=== PATIENT | female | born 1990 | race Caucasian/White ===

== ENCOUNTER 2020-01-28 23:02 | Inpatient (IN) | payer BC ==
[2020-01-28] MEDS ORDERED: Ondansetron 4 MG/2 ML SDV IVPUSH PRN (23:31)
[2020-01-28] MEDS ORDERED: Sodium Chloride 0.9% 10 ML Syringe FLUSH PRN (23:31)
[2020-01-28] MEDS ORDERED: Acetaminophen 325 MG Tab PO PRN (23:31)
[2020-01-28] MEDS ORDERED: Lidocaine 1% 50 ML MDV INJECT ONE (23:31)
[2020-01-28] MEDS ORDERED: Calcium Carbonate 500 MG Tab.Chew PO PRN (23:31)
[2020-01-28] MEDS ORDERED: Oxytocin/Lactated Ringers 10 UNIT/1,000 ML BAG IV SCH ×2 (23:45)
[2020-01-29] MEDS: Nalbuphine 10 MG/1 ML Vial IVPUSH PRN ×2 (03:33→05:48)
--- NOTE | 2020-01-29 05:44 | PCM.LDHP ---
L&D History of Present Illness - General Date of Service: 01/29/20 Admit Problem/Dx: Patient Status Order with Admit Dx/Problem 01/28/20 23:17 Patient Status [ADT] Routine 01/28/20 23:32 Patient Status [ADT] Routine Admission Diagnosis/Problem Admission Diagnosis/Problem Active labor Source of Information: Patient History Limitations: Reports: No Limitations - History of Present Illness Introduction:: Janet Canela is a 29-year-old at 40 weeks 3 days (RACHANA 01/26/2020) by her LMP consistent with 8-week ultrasound who presents with spontaneous rupture membranes. She reports that around 10:20 PM on 01/28/2020 she had a large gush of fluid with continuous leaking of clear fluid. She denies any bleeding with this. She reports she had been having contractions intermittently prior to her water breaking that were irregular every 8 to 20 minutes. She reports that the contractions continued and were getting closer and closer together after her water had broken. She reports good movement. 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 Timing/Duration: Reports: sudden onset (With large gush of fluid around 10:20 PM on 01/28/2020), intermittent (Contractions every 8 to 20 minutes) Quality: Reports: Pressure, Throbbing Severity: Moderate Pain Score: 6 Improves with: Reports: None Worsens with: Reports: None Associated Symptoms: Reports: vaginal fluid, large amount. Denies: vaginal bleeding, vaginal discharge Present Illness Comments:: Janet Canela is a 29-year-old G1, P0 at 40 weeks 3 days (RACHANA 01/26/2020) by LMP consistent with 8-week ultrasound. She has had routine care with Dr. Oreilly since 8 weeks gestational age. She received Tdap vaccine on 11/15/2019 and flu vaccine on 12/27/2019. 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 Only other complication of the pregn barbi has been anemia and has been taking iron supplementation for this with mild constipation. She is using Colace for the constipation. Her is complicated by: * Hay's palsy -patient diagnosed with Hay's palsy with right-sided face paralysis with decreased motion of the right canthus of the mouth and delayed closing of the eyelid with blinking and incomplete closure of the eyelid. She was treated with prednisone 20 mg twice daily for 1 week and valacyclovir 1 g 3 times daily for 1 week. * Anemia in patient was diagnosed with low hemoglobin of 11.5 at her 1 hour glucose tolerance test and started on iron supplementation * History of endometriosis and a possible polycystic ovarian syndrome-patient had undergone laparoscopy with ovarian drilling and fulguration of endome triosis lesions. 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: Current labs Blood type: A+ Antibody screen: Negative First trimester hematocrit/hemoglobin: 39.0%/12.9 on 07/21/2019 Platelets: 213 on 07/21/2019 Urine culture: Mixed billy suggestive of contamination Rubella status: Immune Hepatitis B surface antigen: Negative RPR: Negative HIV: Negative Gonorrhea: Negative Chlamydia: Negative Anatomy ultrasound: Normal anatomy, 44th percentile on 09/17/2019, no evidence of placenta previa One hour glucose tolerance test: 106 Second trimester hematocrit/hemoglobin: 35.6%/11.5 on 10/29/2019 Platelets: 207 on 10/29/2019 GBS status: Negative - Related Data Allergies/Adverse Reactions: Allergies Allergy/AdvReac Type Severity Reaction Status Date / Time No Known Allergies Allergy Verified 01/14/20 09:43 Home Medications: Home Meds Ferrous Sulfate [Iron] 325 mg PO DAILY 01/14/20 [History] Vits #93/Iron Fum/FA [ Formula Tablet] 1 each PO DAILY 01/14/20 [History] Past Medical History HEENT History: Reports: Other (See Below) Other HEENT History: Wears glasses Cardiovascular History: Reports: Heart Murmur Other Cardiovascular History: Pt stated heart murmur developed during Gastrointestinal History: Reports: Chronic Constipation, Hemorrhoids, Other (See Below) Other Gastrointestinal History: Anal fissure Genitourinary History: Reports: UTI, Recurrent 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: Endometriosis (Ablation on laparoscopy), , Other (See Below) : 1 Para: 0 Other OB/BYN History: Infertility Neurological History: Reports: Other (See Below) Other Neuro History: Hay's Palsy Psychiatric History: Reports: Anxiety Hematologic History: Reports: Anemia - Past Surgical History HEENT Surgical History: Reports: None Cardiovascular Surgical History: Reports: None GI Surgical History: Reports: None Female Surgical History: Reports: Other (See Below) Other Female Surgeries/Procedures: Laparoscopy with ovarian drilling and ablation of endometriosis lesions Neurological Surgical History: Reports: None Social & Family History - Family History Family Medical History: No Pertinent Family History - Tobacco Use Tobacco Use Status *Q: Never Tobacco User - Tobacco Core Measures Tobacco Use/Smoking Within Last 30 Days: No Smokeless Tobacco Use in Last 30 Days: No - Alcohol Use Alcohol Use History: No - Recreational Drug Use Recreational Drug Use: No - Living Situation & Occupation Living situation: Reports: , with Spouse Occupation: Employed H&P Review of Systems - Review of Systems: Review Of Systems: See Below General: Denies: Fever, Chills, Malaise, Weakness HEENT: Reports: Glasses, Other (decreased motility of right canthus of mouth and decreased motion of right eyelid). Denies: Eye Pain, Headaches, Rhinitis, Post Nasal Drip, Sinus Congestion, Sore Throat, Visual Changes Pulmonary: Denies: Shortness of Breath, Wheezing, Pleuritic Chest Pain, Cough Cardiovascular: Denies: Chest Pain, Palpitations, Dyspnea on Exertion, Orthopnea Gastrointestinal: Reports: Constipation. Denies: Abdominal Pain, Diarrhea, Nausea, Vomiting Genitourinary: Denies: Dysuria, Frequency, Burning, Pain, Urgency Musculoskeletal: Reports: Back Pain (and hip pain of ) Skin: Denies: Rash, Lesions Psychiatric: Denies: Depression, Anxiety Neurological: Denies: Dizziness, Numbness Hematologic/Lymphatic: Reports: Anemia L&D Exam - Exam Exam: See Below - Vital Signs Vital Signs: Last Vital Signs Temp 37.3 C 01/28/20 23:17 Pulse 65 01/28/20 23:17 Resp 18 01/28/20 23:17 BP 110/75 01/28/20 23:17 Pulse Ox 100 01/28/20 23:17 Weight: 78.517 kg - OB Specific Contraction Duration (sec): 45-60 Contraction Frequency (min): 2-4 Contraction Intensity: Moderate to Strong Movement: Active Heart Tones: Present Heart Tones per Min: 125 (+15 x 15 accelerations, no decelerations) Heart Rate (FHR) Variability: Moderate (6-25 bmp) Presentation: Vertex Estimated Weight: 7-7.5 pounds by Yoan - Johnson Score Johnson Score Cervix Position: Anterior Johnson Score Consistency: Soft Johnson Score Effacement: >80% (90%) Johnson Score Dilation: > 5 cm (5 cm) Johnson Score Infant's Station: -1 ,0 Johnson Score Total: 12 - Exam General: Alert, Oriented HEENT: Conjunctiva Clear, EOMI, Other (Tape covering right eyelid) Neck: Supple, Trachea Midline Lungs: Clear to Auscultation, Normal Respiratory Effort Cardiovascular: Regular Rate, Regular Rhythm GI/Abdominal Exam: Soft, Non-Tender, No Distention, Other (Gravid). No: Guarding, Rigid, Rebound Genitourinary: Normal external exam Extremities: Normal Inspection, No Pedal Edema Skin: Warm, Dry, Intact Psychiatric: Alert, Normal Affect, Normal Mood - Patient Data Lab Results Last 24 hrs: Laboratory Results - last 24 hr 01/28/20 01/28/20 01/28/20 Range/Units 23:45 23:45 23:45 WBC 15.06 H (3.98-10.04) K/mm3 RBC 4.25 (3.98-5.22) M/mm3 Hgb 14.1 D (11.2-15.7) gm/dl Hct 42.3 (34.1-44.9) % MCV 99.5 H (79.4-94.8) fl MCH 33.2 H (25.6-32.2) pg MCHC 33.3 (32.2-35.5) g/dl RDW Std Deviation 48.6 H (36.4-46.3) fL Plt Count 209 (182-369) K/mm3 MPV 10.3 (9.4-12.3) fl Neut % (Auto) 71.0 (34.0-71.1) % Lymph % (Auto) 16.9 L (19.3-51.7) % [place] % (Auto) 9.8 (4.7-12.5) % Eos % (Auto) 0.4 L (0.7-5.8) Baso % (Auto) 0.2 (0.1-1.2) % Neut # (Auto) 10.70 H (1.56-6.13) K/mm3 Lymph # (Auto) 2.54 (1.18-3.74) K/mm3 [place] # (Auto) 1.47 H (0.24-0.36) K/mm3 Eos # (Auto) 0.06 (0.04-0.36) K/mm3 Baso # (Auto) 0.03 (0.01-0.08) K/mm3 Manual Slide Review Abnormal smear SARS-CoV-2 RNA (MARY) Negative (NEGATIVE) Blood Type A POSITIVE Gel Antibody Screen Negative Result Diagrams: 01/28/20 23:45 - Problem List (1) 40 weeks gestation of SNOMED Code(s): 37182873 ICD Code: Z3A.40 - 40 WEEKS GESTATION OF Status: Acute Current Visit: Yes (2) Hay's palsy affecting in third trimester SNOMED Code(s): 509085162, 084513816 ICD Code: O99.353 - DISEASES OF THE NERVOUS SYS COMP , THIRD TRIMESTER; G51.0 - HAY'S PALSY Status: Acute Current Visit: Yes (3) Anemia affecting in third trimester SNOMED Code(s): 98867187, 80070199 ICD Code: O99.013 - ANEMIA COMPLICATING , THIRD TRIMESTER Status: Acute Current Visit: Yes Problem List Initiated/Reviewed/Updated: Yes Orders Last 24hrs: Active Orders 24 hr Category Date Time Status Patient Status [ADT] Routine ADT 01/28/20 23:32 Active Activity as Tolerated [RC] PFP Care 01/28/20 23:32 Active Communication Order [RC] ASDIRECTED Care 01/28/20 23:32 Active Heart Tones [RC] ASDIRECTED Care 01/28/20 23:32 Active Notify Provider [RC] PFP Care 01/28/20 23:32 Active Notify Provider [RC] PRN Care 01/28/20 23:32 Active Peripheral IV Care [RC] Q2HR Care 01/28/20 23:32 Active Pump Management, Intrathecal [RC] ASDIRECTED Care 01/28/20 23:32 Active Urinary Catheter Assessment [RC] ASDIRECTED Care 01/28/20 23:31 Active Regular Diet [DIET] Diet 01/28/20 Dinner Active PATIENT RETYPE [BBK] Routine Lab 01/29/20 00:42 Ordered RAPID PLASMA REAGIN,RPR [CHEM] Stat Lab 01/28/20 23:45 Received Acetaminophen [TylenoL] Med 01/28/20 23:31 Active 650 mg PO Q4H PRN Calcium Carbonate [Tums] Med 01/28/20 23:31 Active 1,000 mg PO Q2H PRN Lactated Ringers [Ringers, Lactated] 1,000 ml Med 01/28/20 23:45 Active IV ASDIRECTED Nalbuphine [Nubain] Med 01/28/20 23:31 Active 10 mg IVPUSH Q2H PRN Ondansetron [Zofran] Med 01/28/20 23:31 Active 4 mg IVPUSH Q4H PRN Oxytocin/Lactated Ringers [Pitocin in LR 10 Units/1,000 Med 01/28/20 23:45 Active ML] 10 unit in 1,000 ml IV .CONTINUOUS Oxytocin/Lactated Ringers [Pitocin in LR 10 Units/1,000 Med 01/28/20 23:45 Active ML] 10 unit in 1,000 ml IV TITRATE Sodium Chloride 0.9% [Saline Flush] Med 01/28/20 23:31 Active 10 ml FLUSH ASDIRECTED PRN Electronic Heart Tones Ext w TOCO [WOMSER] Oth 01/28/20 23:32 Ordered Routine Electronic Heart Tones Internal [WOMSER] Per Unit Oth 01/28/20 23:32 Ordered Routine Peripheral IV Insertion Adult [OM.PC] Routine Oth 01/28/20 23:32 Ordered Resuscitation Status Routine Resus Stat 01/28/20 23:17 Ordered Medication Orders Acetaminophen (Tylenol) 650 mg PO Q4H PRN PRN Reason: Pain (Mild 1-3) and fever Calcium Carbonate/Glycine (Tums) 1,000 mg PO Q2H PRN PRN Reason: Indigestion Lactated Ringer's (Ringers, Lactated) 1,000 mls @ 100 mls/hr IV ASDIRECTED WAI Oxytocin/Lactated Ringer's (Pitocin In Lr 10 Units/1,000 Ml) 10 unit in 1,000 mls @ 12 mls/hr IV TITRATE WAI; Protocol Oxytocin/Lactated Ringer's (Pitocin In Lr 10 Units/1,000 Ml) 10 unit in 1,000 mls @ 500 mls/hr IV .CONTINUOUS WAI Nalbuphine HCl (Nubain) 10 mg IVPUSH Q2H PRN PRN Reason: Pain Last Admin: 01/29/20 03:33 Dose: 10 mg Documented by: RICKI Ondansetron HCl (Zofran) 4 mg IVPUSH Q4H PRN PRN Reason: Nausea/Vomiting Sodium Chloride (Saline Flush) 10 ml FLUSH ASDIRECTED PRN PRN Reason: Keep Vein Open Assessment/Plan Comment:: Janet Canela is a 29-year-old at 40 weeks 3 days (RACHANA 01/26/2020) with active labor and spontaneous rupture membranes Refer to observation for spontaneous rupture of membranes Continuous monitoring Place IV and have Lactated Ringer's at 125 ml/hr May have small amounts of regular diet Activity as tolerated Patient planning to use Nubain for anesthesia but may have epidural if desired Plans to breast-feed after delivery Continue care for eye with eyedrops and ointment as needed for symptoms related to Hay's palsy Anticipate vaginal delivery unless otherwise indicated Jason Lan MD 5:52 AM 01/29/2020
[2020-01-29] MEDS: Lactated Ringers 1,000 ML IV SCH ×3 (06:25→11:46)
[2020-01-29] MEDS ORDERED: fentaNYL 100 MCG/2 ML SDV EPIDUR PRN (06:54)
[2020-01-29] MEDS ORDERED: Ondansetron 4 MG/2 ML SDV IVPUSH PRN (06:54)
[2020-01-29] MEDS ORDERED: ePHEDrine 50 MG/ML SDV IVPUSH PRN (06:54)
--- NOTE | 2020-01-29 06:59 | PCM.PREANE ---
Preanesthetic Assessment - Procedure Proposed Procedure: Epidural - Anesthesia/Transfusion/Family Hx Anesthesia History: Prior Anesthesia Without Reaction Family History of Anesthesia Reaction: No Transfusion History: No Prior Transfusion(s) Intubation History: Unknown - Review of Systems General: No Symptoms Pulmonary: No Symptoms Cardiovascular: No Symptoms Gastrointestinal: No Symptoms (GERD), Constipation Neurological: No Symptoms (Motion sickness in car when reading), Numbness (right side of face/hard to close right eye all the way: diagnosed with Hay's Palsy:01/14/2020), Tingling (CTS on right hand) Other: Reports: None, Sinus Problem - Physical Assessment NPO Status Date: 01/29/20 NPO Status Time: 08:00 Vital Signs: Last Vital Signs Temp 37.3 C 01/28/20 23:17 Pulse 65 01/28/20 23:17 Resp 18 01/28/20 23:17 BP 110/75 01/28/20 23:17 Pulse Ox 100 01/28/20 23:17 Height: 1.55 m Weight: 78.517 kg ASA Class: 2 Mental Status: Alert & Oriented x3 Airway Class: Mallampati = 2 Dentition: Reports: Normal Dentition, Caries Thyro-Mental Finger Breadths: 3 Mouth Opening Finger Breadths: 3 ROM/Head Extension: Full Lungs: Clear to Auscultation, Normal Respiratory Effort Cardiovascular: Regular Rate, Regular Rhythm, No Murmurs - Lab Values: Laboratory Last Values WBC 15.06 K/mm3 (3.98-10.04) H 01/28/20 23:45 RBC 4.25 M/mm3 (3.98-5.22) 01/28/20 23:45 Hgb 14.1 gm/dl (11.2-15.7) D 01/28/20 23:45 Hct 42.3 % (34.1-44.9) 01/28/20 23:45 MCV 99.5 fl (79.4-94.8) H 01/28/20 23:45 MCH 33.2 pg (25.6-32.2) H 01/28/20 23:45 MCHC 33.3 g/dl (32.2-35.5) 01/28/20 23:45 RDW Std Deviation 48.6 fL (36.4-46.3) H 01/28/20 23:45 Plt Count 209 K/mm3 (182-369) 01/28/20 23:45 MPV 10.3 fl (9.4-12.3) 01/28/20 23:45 Neut % (Auto) 71.0 % (34.0-71.1) 01/28/20 23:45 Lymph % (Auto) 16.9 % (19.3-51.7) L 01/28/20 23:45 [place] % (Auto) 9.8 % (4.7-12.5) 01/28/20 23:45 Eos % (Auto) 0.4 (0.7-5.8) L 01/28/20 23:45 Baso % (Auto) 0.2 % (0.1-1.2) 01/28/20 23:45 Neut # (Auto) 10.70 K/mm3 (1.56-6.13) H 01/28/20 23:45 Lymph # (Auto) 2.54 K/mm3 (1.18-3.74) 01/28/20 23:45 [place] # (Auto) 1.47 K/mm3 (0.24-0.36) H 01/28/20 23:45 Eos # (Auto) 0.06 K/mm3 (0.04-0.36) 01/28/20 23:45 Baso # (Auto) 0.03 K/mm3 (0.01-0.08) 01/28/20 23:45 Manual Slide Review Abnormal smear 01/28/20 23:45 SARS-CoV-2 RNA (MARY) Negative (NEGATIVE) 01/28/20 23:45 Blood Type A POSITIVE 01/28/20 23:45 Gel Antibody Screen Negative 01/28/20 23:45 Above labs reviewed and noted and within acceptable ranges to proceed with epidural if desired. - Allergies Allergies/Adverse Reactions: Allergies Allergy/AdvReac Type Severity Reaction Status Date / Time No Known Allergies Allergy Verified 01/14/20 09:43 - Anesthesia Plan Pre-Op Medication Ordered: None - Acknowledgements Anesthesia Type Planned: Epidural Pt an Appropriate Candidate for the Planned Anesthesia: Yes Alternatives and Risks of Anesthesia Discussed w Pt/Guardian: Yes Pt/Guardian Understands and Agrees with Anesthesia Plan: Yes PreAnesthesia Questionnaire HEENT History: Reports: Other (See Below) Other HEENT History: Wears glasses Cardiovascular History: Reports: Heart Murmur Other Cardiovascular History: Pt stated heart murmur developed during Gastrointestinal History: Reports: Chronic Constipation, Hemorrhoids, Other (See Below) Other Gastrointestinal History: Anal fissure Genitourinary History: Reports: UTI, Recurrent 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 (Ablation on laparoscopy), , Other (See Below) Other OB/BYN History: Infertility Neurological History: Reports: Other (See Below) Other Neuro History: Hay's Palsy Psychiatric History: Reports: Anxiety Hematologic History: Reports: Anemia - Past Surgical History HEENT Surgical History: Reports: None Cardiovascular Surgical History: Reports: None GI Surgical History: Reports: None Female Surgical History: Reports: Other (See Below) Other Female Surgeries/Procedures: Laparoscopy with ovarian drilling and ablation of endometriosis lesions Neurological Surgical History: Reports: None - SUBSTANCE USE Tobacco Use Status *Q: Never Tobacco User Tobacco Use Within Last Twelve Months: No Recreational Drug Use History: No - HOME MEDS Home Medications: Home Meds Ferrous Sulfate [Iron] 325 mg PO DAILY 01/14/20 [History] Vits #93/Iron Fum/FA [ Formula Tablet] 1 each PO DAILY 01/14/20 [History] - CURRENT (IN HOUSE) MEDS Current Meds: Current Medications Acetaminophen (Tylenol) 650 mg PO Q4H PRN PRN Reason: Pain (Mild 1-3) and fever Calcium Carbonate/Glycine (Tums) 1,000 mg PO Q2H PRN PRN Reason: Indigestion Ephedrine Sulfate (Ephedrine Sulfate) 5 mg IVPUSH ASDIRECTED PRN PRN Reason: Hypotension Fentanyl (Sublimaze) 100 mcg EPIDUR Q3H PRN PRN Reason: Pain Fentanyl/Bupivacaine HCl (Fentanyl/Bupivacaine/Ns 2 Mcg-0.125% 100 Ml) 100 ml EPIDUR ASDIRECTED WAI Lactated Ringer's (Ringers, Lactated) 1,000 mls @ 100 mls/hr IV ASDIRECTED WAI Last Admin: 01/29/20 06:25 Dose: 999 mls/hr Documented by: Oxytocin/Lactated Ringer's (Pitocin In Lr 10 Units/1,000 Ml) 10 unit in 1,000 mls @ 12 mls/hr IV TITRATE WAI; Protocol Oxytocin/Lactated Ringer's (Pitocin In Lr 10 Units/1,000 Ml) 10 unit in 1,000 mls @ 500 mls/hr IV .CONTINUOUS WAI Miscellaneous Medication (Phenylephrine 1 Mg/10 Ml-Ns) 0 mg IVPUSH ONETIME ONE Stop: 01/29/20 06:55 Nalbuphine HCl (Nubain) 10 mg IVPUSH Q2H PRN PRN Reason: Pain Last Admin: 01/29/20 05:48 Dose: 10 mg Documented by: Ondansetron HCl (Zofran) 4 mg IVPUSH Q4H PRN PRN Reason: Nausea/Vomiting Ondansetron HCl (Zofran) 4 mg IVPUSH ONETIME PRN PRN Reason: Nausea/Vomiting Sodium Chloride (Saline Flush) 10 ml FLUSH ASDIRECTED PRN PRN Reason: Keep Vein Open Discontinued Medications Lidocaine HCl (Xylocaine 1%) 50 ml INJECT ONETIME ONE Stop: 01/28/20 23:32
[2020-01-29] MEDS ORDERED: Bupivacaine/fentaNYL/NS 100 ML Bag EPIDUR SCH (07:00)
[2020-01-29] MEDS ORDERED: Bupivacaine 0.25% 10 ML SDV ONE (10:00)
--- NOTE | 2020-01-29 11:34 | PCM.PNLD ---
Labor Progress Note - VS & Meds Vital Signs: Last Vital Signs Temp 37.3 C 01/28/20 23:17 Pulse 65 01/28/20 23:17 Resp 18 01/28/20 23:17 BP 110/75 01/28/20 23:17 Pulse Ox 100 01/28/20 23:17 Active Medications: Current Medications Acetaminophen (Tylenol) 650 mg PO Q4H PRN PRN Reason: Pain (Mild 1-3) and fever Calcium Carbonate/Glycine (Tums) 1,000 mg PO Q2H PRN PRN Reason: Indigestion Ephedrine Sulfate (Ephedrine Sulfate) 5 mg IVPUSH ASDIRECTED PRN PRN Reason: Hypotension Fentanyl (Sublimaze) 100 mcg EPIDUR Q3H PRN PRN Reason: Pain Last Admin: 01/29/20 07:08 Dose: 100 mcg Documented by: Fentanyl/Bupivacaine HCl (Fentanyl/Bupivacaine/Ns 2 Mcg-0.125% 100 Ml) 100 ml EPIDUR ASDIRECTED WAI Last Admin: 01/29/20 07:08 Dose: 100 ml Documented by: Lactated Ringer's (Ringers, Lactated) 1,000 mls @ 100 mls/hr IV ASDIRECTED WAI Last Admin: 01/29/20 07:32 Dose: 999 mls/hr Documented by: Oxytocin/Lactated Ringer's (Pitocin In Lr 10 Units/1,000 Ml) 10 unit in 1,000 mls @ 12 mls/hr IV TITRATE WAI; Protocol Oxytocin/Lactated Ringer's (Pitocin In Lr 10 Units/1,000 Ml) 10 unit in 1,000 mls @ 500 mls/hr IV .CONTINUOUS WAI Nalbuphine HCl (Nubain) 10 mg IVPUSH Q2H PRN PRN Reason: Pain Last Admin: 01/29/20 05:48 Dose: 10 mg Documented by: Ondansetron HCl (Zofran) 4 mg IVPUSH Q4H PRN PRN Reason: Nausea/Vomiting Ondansetron HCl (Zofran) 4 mg IVPUSH ONETIME PRN PRN Reason: Nausea/Vomiting Sodium Chloride (Saline Flush) 10 ml FLUSH ASDIRECTED PRN PRN Reason: Keep Vein Open Discontinued Medications Lidocaine HCl (Xylocaine 1%) 50 ml INJECT ONETIME ONE Stop: 01/28/20 23:32 Miscellaneous Medication (Phenylephrine 1 Mg/10 Ml-Ns) 0 mg IVPUSH ONETIME ONE Stop: 01/29/20 06:55 - Uterine Contractions Contraction Frequency (min): 2-4 Contraction Duration (sec): 60-75 Contraction Intensity: Moderate to Strong - Monitoring Monitor Mode: Doppler/Auscultation Heart Rate (FHR) Baseline: 140 Heart Rate (FHR) Per Doppler: 140 Heart Rate (FHR) Variability: Moderate (6-25 bmp) Accelerations: Present, 15x15 Decelerations: Early, Intermittent (<50% x 20 min) Strip Review: Category I - Vaginal Exam Dilation (cm): 9 Effacement (Percent): 70 Station: -1 Cervical Position: Anterior Sterile Vaginal Exam Performed By: Jason Lan - Labor Progress (Free Text) Labor Progress: Janet Canela is a 29-year-old at 40 weeks 3 days with spontaneous rupture of membranes Patient making cervical change in progress at this time Epidural in place and providing good anesthesia Routine vitals Continuous monitoring Anticipate vaginal delivery unless otherwise indicated. Jason Lan MD 11:33 AM 01/29/2020
[2020-01-29] MEDS ORDERED: Lidocaine 1% 50 ML MDV ONE (16:13)
[2020-01-29] MEDS ORDERED: Acetaminophen 325 MG Tab PO PRN (16:52)
[2020-01-29] MEDS ORDERED: Oxytocin/Lactated Ringers 10 UNIT/1,000 ML BAG IV SCH (16:52)
[2020-01-29] MEDS ORDERED: Hydrocortisone Acetate 25 MG Supp RECTAL PRN (16:52)
[2020-01-29] MEDS ORDERED: Magnesium Hydroxide 400 MG/5 ML Susp 30 ML Cup PO PRN (16:52)
[2020-01-29] MEDS ORDERED: Witch Hazel Medicated Pads 40/Jar TOP PRN (16:52)
[2020-01-29] MEDS ORDERED: Docusate Sodium 100 MG Cap PO PRN (16:52)
[2020-01-29] MEDS ORDERED: Benzocaine/Menthol 20%-0.5% Spray 56 GM Canister TOP PRN (16:52)
--- NOTE | 2020-01-29 16:53 | PCM.DEL ---
L & D Note - General Info Date of Service: 01/29/20 Mother's Due Date: 01/26/20 - Delivery Note Labor: Spontaneous Delivery Method: Spontaneous Vaginal Delivery-Single Delivery Mode: Spontaneous Presentation: Right Occiput Anterior (JANEL) Nuchal Cord: Present (x1), Reduced Anesthesia Type: Epidural Anesthetic: Lidocaine (Xylocaine) 1% Plain Local Anesthetic Volume: Other (18 mL) Amniotic Fluid Description: Clear Episiotomy Type: None Laceration: 2nd Degree (midline perineal, repaired with 3-0 Vicryl) Suture type: Vicryl Suture size: 3-0 Placenta: Intact, Spontaneous Cord: 3 Vessels Estimated Blood Loss: 400 Resuscitation Needed: No Moody: Bulb Syringe, Stimulated, Warmed, [place] Used Provider: Jason Lan Score 1 min: 8 Score 5 min: 9 Second Stage Interventions: Reports: Pushing Effectively, Pushing, Pulls Own Legs Back, Pushing, Stirrups/Leg Supports Delivery Comments (Free Text/Narrative):: Stage I: Janet Canela was admitted for active labor and spontaneous rupture of membranes. On admission her cervix was dilated to 4 cm. She was GBS negative. She was given an epidural for anesthesia. She progressed to complete and pushing. Stage II: On 01/29/2020 she had a normal vaginal delivery of a live female at 15:57. Apgars of 8 & 9. Weight of 3350 g (7 lbs 6.2 oz). Length of 21 inches. There was a single nuchal cord that was reduced prior to delivery. Infant was delivered in JANEL position. The cord was doubly clamped and cut by myself. Infant was placed on mother's abdomen. Stage III: She had a spontaneous delivery of an intact placenta in Amarilys presentation. Three vessel cord. She was given pitocin and fundal massage. She had a second-degree midline perineal laceration that was repaired with 3-0 Vicryl. Mom and baby were stable to recovery. EBL of 400 mL. Jason Lan MD 4:48 PM 01/29/2020 - General Info Date of Service: 01/29/20 - Patient Data Vitals - Most Recent: Last Vital Signs Temp 37.3 C 01/28/20 23:17 Pulse 65 01/28/20 23:17 Resp 18 01/28/20 23:17 BP 110/75 01/28/20 23:17 Pulse Ox 100 01/28/20 23:17 Weight - Most Recent: 78.517 kg I&O - Last 24 Hours: Intake & Output 01/29/20 01/29/20 01/29/20 06:59 14:59 22:59 Intake Total 120 Output Total 500 Balance -380 Lab Results Last 24 Hours: Laboratory Results - last 24 hr 01/28/20 01/28/20 01/28/20 Range/Units 23:45 23:45 23:45 WBC 15.06 H (3.98-10.04) K/mm3 RBC 4.25 (3.98-5.22) M/mm3 Hgb 14.1 D (11.2-15.7) gm/dl Hct 42.3 (34.1-44.9) % MCV 99.5 H (79.4-94.8) fl MCH 33.2 H (25.6-32.2) pg MCHC 33.3 (32.2-35.5) g/dl RDW Std Deviation 48.6 H (36.4-46.3) fL Plt Count 209 (182-369) K/mm3 MPV 10.3 (9.4-12.3) fl Neut % (Auto) 71.0 (34.0-71.1) % Lymph % (Auto) 16.9 L (19.3-51.7) % Barry % (Auto) 9.8 (4.7-12.5) % Eos % (Auto) 0.4 L (0.7-5.8) Baso % (Auto) 0.2 (0.1-1.2) % Neut # (Auto) 10.70 H (1.56-6.13) K/mm3 Lymph # (Auto) 2.54 (1.18-3.74) K/mm3 Barry # (Auto) 1.47 H (0.24-0.36) K/mm3 Eos # (Auto) 0.06 (0.04-0.36) K/mm3 Baso # (Auto) 0.03 (0.01-0.08) K/mm3 Manual Slide Review Abnormal smear SARS-CoV-2 RNA (MARY) Negative (NEGATIVE) Blood Type A POSITIVE Gel Antibody Screen Negative Med Orders - Current: Current Medications Acetaminophen (Tylenol) 650 mg PO Q4H PRN PRN Reason: Pain (Mild 1-3) and fever Calcium Carbonate/Glycine (Tums) 1,000 mg PO Q2H PRN PRN Reason: Indigestion Ephedrine Sulfate (Ephedrine Sulfate) 5 mg IVPUSH ASDIRECTED PRN PRN Reason: Hypotension Fentanyl (Sublimaze) 100 mcg EPIDUR Q3H PRN PRN Reason: Pain Last Admin: 01/29/20 07:08 Dose: 100 mcg Documented by: Fentanyl/Bupivacaine HCl (Fentanyl/Bupivacaine/Ns 2 Mcg-0.125% 100 Ml) 100 ml EPIDUR ASDIRECTED WAI Last Admin: 01/29/20 07:08 Dose: 100 ml Documented by: Lactated Ringer's (Ringers, Lactated) 1,000 mls @ 100 mls/hr IV ASDIRECTED WAI Last Admin: 01/29/20 11:46 Dose: 125 mls/hr Documented by: Oxytocin/Lactated Ringer's (Pitocin In Lr 10 Units/1,000 Ml) 10 unit in 1,000 mls @ 12 mls/hr IV TITRATE WAI; Protocol Oxytocin/Lactated Ringer's (Pitocin In Lr 10 Units/1,000 Ml) 10 unit in 1,000 mls @ 500 mls/hr IV .CONTINUOUS WAI Last Admin: 01/29/20 16:07 Dose: 500 mls/hr Documented by: Nalbuphine HCl (Nubain) 10 mg IVPUSH Q2H PRN PRN Reason: Pain Last Admin: 01/29/20 05:48 Dose: 10 mg Documented by: Ondansetron HCl (Zofran) 4 mg IVPUSH Q4H PRN PRN Reason: Nausea/Vomiting Ondansetron HCl (Zofran) 4 mg IVPUSH ONETIME PRN PRN Reason: Nausea/Vomiting Last Admin: 01/29/20 11:49 Dose: 4 mg Documented by: Sodium Chloride (Saline Flush) 10 ml FLUSH ASDIRECTED PRN PRN Reason: Keep Vein Open Discontinued Medications Lidocaine HCl (Xylocaine 1%) 50 ml INJECT ONETIME ONE Stop: 01/28/20 23:32 Lidocaine HCl (Xylocaine 1%) Confirm Administered Dose 50 ml .ROUTE .STK-MED ONE Stop: 01/29/20 16:14 Miscellaneous Medication (Phenylephrine 1 Mg/10 Ml-Ns) 0 mg IVPUSH ONETIME ONE Stop: 01/29/20 06:55 - Problem List & Annotations (1) 40 weeks gestation of SNOMED Code(s): 55337043 Code(s): Z3A.40 - 40 WEEKS GESTATION OF Status: Acute Current Visit: Yes (2) 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 SNOMED Code(s): 672711591, 044400375 Code(s): O99.353 - DISEASES OF THE NERVOUS SYS COMP , THIRD TRIMESTER; G51.0 - ELIZABETH'S PALSY Status: Acute Current Visit: Yes (3) Anemia affecting in third trimester SNOMED Code(s): 00275639, 17441467 Code(s): O99.013 - ANEMIA COMPLICATING , THIRD TRIMESTER Status: Acute Current Visit: Yes (4) Vaginal delivery SNOMED Code(s): 455481579 Code(s): O80 - ENCOUNTER FOR FULL-TERM UNCOMPLICATED DELIVERY Status: Acute Current Visit: Yes (5) Second degree perineal laceration during delivery SNOMED Code(s): 1483325 Code(s): O70.1 - SECOND DEGREE PERINEAL LACERATION DURING DELIVERY Status: Acute Current Visit: Yes - Problem List Review Problem List Initiated/Reviewed/Updated: Yes - My Orders Last 24 Hours: My Active Orders 01/28/20 Dinner Regular Diet [DIET] 01/28/20 23:17 Resuscitation Status Routine 01/28/20 23:31 Urinary Catheter Assessment [RC] ASDIRECTED Acetaminophen [TylenoL] 650 mg PO Q4H PRN Calcium Carbonate [Tums] 1,000 mg PO Q2H PRN Nalbuphine [Nubain] 10 mg IVPUSH Q2H PRN Ondansetron [Zofran] 4 mg IVPUSH Q4H PRN Sodium Chloride 0.9% [Saline Flush] 10 ml FLUSH ASDIRECTED PRN 01/28/20 23:32 Patient Status [ADT] Routine Activity as Tolerated [RC] PFP Communication Order [RC] ASDIRECTED Heart Tones [RC] ASDIRECTED Notify Provider [RC] PFP Notify Provider [RC] PRN Peripheral IV Care [RC] Q2HR Pump Management, Intrathecal [RC] ASDIRECTED Electronic Heart Tones Ext w TOCO [WOMSER] Routine Electronic Heart Tones Internal [WOMSER] Per Unit Routine Peripheral IV Insertion Adult [OM.PC] Routine 01/28/20 23:45 RAPID PLASMA REAGIN,RPR [CHEM] Stat Lactated Ringers [Ringers, Lactated] 1,000 ml IV ASDIRECTED Oxytocin/Lactated Ringers [Pitocin in LR 10 Units/1,000 ML] 10 unit in 1,000 ml IV .CONTINUOUS Oxytocin/Lactated Ringers [Pitocin in LR 10 Units/1,000 ML] 10 unit in 1,000 ml IV TITRATE 01/29/20 00:42 PATIENT RETYPE [BBK] Routine 01/29/20 16:41 Patient Status Manage Transfer [TRANSFER] Routine - Plan Plan:: Janet Canela is a 29-year-old G1 now P1-0-0-1 status post , PPD #0 complicated by Elizabeth's palsy and anemia in Admit to inpatient following normal spontaneous vaginal delivery Continue Pitocin per unit protocol following delivery of placenta and lactated Ringer's until tolerating regular diet Regular diet Vitals per unit routine Ibuprofen and Tylenol for pain control Assist with breast-feeding as needed Continue to monitor lochia CBC in the morning secondary to EBL 400 mL Anticipate discharge home on day #2 Jason Lan MD 4:48 PM 01/29/2020
[2020-01-29] MEDS: Ibuprofen 600 MG Tab PO PRN (17:32)
--- NOTE | 2020-01-29 18:25 | PCM48HPAN ---
Post Anesthesia Note - EVALUATION WITHIN 48HRS OF ANESTHETIC Vital Signs in Normal Range: Yes Patient Participated in Evaluation: Yes Respiratory Function Stable: Yes Airway Patent: Yes Cardiovascular Function Stable: Yes Hydration Status Stable: Yes Pain Control Satisfactory: Yes Nausea and Vomiting Control Satisfactory: Yes Mental Status Recovered: Yes Vital Signs: Last Vital Signs Temp 37.3 C 01/28/20 23:17 Pulse 65 01/28/20 23:17 Resp 18 01/28/20 23:17 BP 110/75 01/28/20 23:17 Pulse Ox 100 01/28/20 23:17
[2020-01-30] MEDS: Ibuprofen 600 MG Tab PO PRN ×2 (00:41→08:24)
--- NOTE | 2020-01-30 07:21 | PCM.SN.2 ---
- Free Text/Narrative Note: Post Progress Note PPD #1 Subjective: Doing well overall. Ambulating minimally to the bathroom without difficulty. Lochia minimal. Voiding without difficulty. Tolerating regular diet without nausea or vomiting. Pain controlled with oral medications. Breast-feeding with minimal difficulty. Objective: Vitals: Vital Signs - 24 hr 01/29/20 01/30/20 20:18 04:56 Temperature 37.3 C 37.7 C Pulse, 73 60 Peripheral Respiratory 15 15 Rate Blood Pressure 108/59 L 111/75 O2 Sat by Pulse 97 98 Oximetry Physical Exam General: Alert and oriented, no acute distress Lungs: Clear to auscultation bilaterally Heart: Regular rate and rhythm Abdomen: Soft, minimal appropriate tenderness, non-distended, fundus midline, nontender, and at the umbilicus Extremities: Trace edema in bilateral lower extremities to mid shins, nontender Laboratory Tests 01/28/20 01/28/20 01/28/20 Range/Units 23:45 23:45 23:45 WBC 15.06 H (3.98-10.04) K/mm3 RBC 4.25 (3.98-5.22) M/mm3 Hgb 14.1 D (11.2-15.7) gm/dl Hct 42.3 (34.1-44.9) % MCV 99.5 H (79.4-94.8) fl MCH 33.2 H (25.6-32.2) pg MCHC 33.3 (32.2-35.5) g/dl RDW Std Deviation 48.6 H (36.4-46.3) fL Plt Count 209 (182-369) K/mm3 MPV 10.3 (9.4-12.3) fl Neut % (Auto) 71.0 (34.0-71.1) % Lymph % (Auto) 16.9 L (19.3-51.7) % Swain % (Auto) 9.8 (4.7-12.5) % Eos % (Auto) 0.4 L (0.7-5.8) Baso % (Auto) 0.2 (0.1-1.2) % Neut # (Auto) 10.70 H (1.56-6.13) K/mm3 Lymph # (Auto) 2.54 (1.18-3.74) K/mm3 Swain # (Auto) 1.47 H (0.24-0.36) K/mm3 Eos # (Auto) 0.06 (0.04-0.36) K/mm3 Baso # (Auto) 0.03 (0.01-0.08) K/mm3 Manual Slide Review Abnormal smear SARS-CoV-2 RNA (MARY) Negative (NEGATIVE) Blood Type A POSITIVE Gel Antibody Screen Negative 01/30/20 Range/Units 06:03 WBC 21.73 H (3.98-10.04) K/mm3 RBC 3.46 L (3.98-5.22) M/mm3 Hgb 11.2 D (11.2-15.7) gm/dl Hct 34.9 (34.1-44.9) % MCV 100.9 H (79.4-94.8) fl MCH 32.4 H (25.6-32.2) pg MCHC 32.1 L (32.2-35.5) g/dl RDW Std Deviation 48.9 H (36.4-46.3) fL Plt Count 186 (182-369) K/mm3 MPV 10.4 (9.4-12.3) fl Neut % (Auto) 77.8 H (34.0-71.1) % Lymph % (Auto) 11.9 L (19.3-51.7) % Swain % (Auto) 9.3 (4.7-12.5) % Eos % (Auto) 0.2 L (0.7-5.8) Baso % (Auto) 0.0 L (0.1-1.2) % Neut # (Auto) 16.90 H (1.56-6.13) K/mm3 Lymph # (Auto) 2.58 (1.18-3.74) K/mm3 Swain # (Auto) 2.03 H (0.24-0.36) K/mm3 Eos # (Auto) 0.04 (0.04-0.36) K/mm3 Baso # (Auto) 0.01 (0.01-0.08) K/mm3 Manual Slide Review Abnormal smear SARS-CoV-2 RNA (MARY) (NEGATIVE) Blood Type Gel Antibody Screen ASSESSMENT: 29-year-old female -0-0-1 s/p normal vaginal delivery PPD #1, complicated by Hay's palsy and anemia in early PLAN: Doing well Breast-feeding with minimal difficulty. Assist as needed Lochia minimal. Continue to monitor for appropriate lochia. Continue routine care Patient with drop in her hemoglobin from 14.1 on admission down to 11.2 in the morning of PPD #1. Vital signs are within normal limits and no symptoms of anemia. Lochia minimal at this time. Do not have any significant concerns regarding this drop in her hemoglobin. We will continue to monitor her lochia throughout the day Anticipate discharge home tomorrow Jason Lan MD 7:20 AM 01/30/2020
[2020-01-30] MEDS: Ferrous Sulfate 324 MG Tab.EC PO SCH (08:23)
[2020-01-30] MEDS: Prenatal Multivitamin with Calcium/Folic Acid/Iron Tab PO SCH (08:57)
--- NOTE | 2020-01-31 10:26 | PCM.SN.2 ---
- Free Text/Narrative Note: Post Progress Note PPD #2 Subjective: Doing well overall. Ambulating without difficulty. Reports that she did have some pain on the right side of her abdomen when she was more active in her room this morning. She states that it occurred after she was bending over and doing more activities. It resolved when she laid down and rested in her bed. Lochia minimal. Voiding without difficulty. Tolerating regular diet without nausea or vomiting. Pain controlled with oral medications. Breast-feeding with minimal difficulty. Objective: Vitals: Vital Signs - 24 hr 01/30/20 01/30/20 01/31/20 14:34 21:07 03:08 Temperature 36.6 C 36.9 C 36.8 C Pulse, 64 70 74 Peripheral Respiratory 16 14 14 Rate Blood Pressure 107/65 99/54 L 107/62 O2 Sat by Pulse 99 98 98 Oximetry Physical Exam General: Alert and oriented, no acute distress Lungs: Clear to auscultation bilaterally Heart: Regular rate and rhythm Abdomen: Soft, minimal appropriate tenderness, non-distended, fundus midline, nontender, and 1 fingerbreadth below the umbilicus. Mild tenderness on uterine fundus where patient stated that she was having pain from ambulating this morning. Extremities: No edema in bilateral lower extremities to mid shins, nontender ASSESSMENT: 29-year-old female -0-0-1 s/p normal vaginal delivery PPD #2, complicated by Hay's palsy and anemia in early PLAN: Doing well Breast-feeding with minimal difficulty. Assist as needed Lochia minimal. Continue to monitor for appropriate lochia. Continue routine care Suspect that the abdominal pain that she was having was due to uterine cramping after delivery. Recommend for patient to monitor her pain closely. Discharge home today Jason Lan MD 10:23 AM 01/31/2020
--- NOTE | 2020-01-31 10:29 | PCM.DCSUM1 ---
Discharge Summary - Hospital Course Free Text/Narrative:: - General Info Date of Service: 01/29/20 Mother's Due Date: 01/26/20 - Delivery Note Labor: Spontaneous Infant Delivery Method: Spontaneous Vaginal Delivery-Single Infant Delivery Mode: Spontaneous Presentation: Right Occiput Anterior (JANEL) Nuchal Cord: Present (x1), Reduced Anesthesia Type: Epidural Anesthetic: Lidocaine (Xylocaine) 1% Plain Local Anesthetic Volume: Other (18 mL) Amniotic Fluid Description: Clear Episiotomy Type: None Laceration: 2nd Degree (midline perineal, repaired with 3-0 Vicryl) Suture type: Vicryl Suture size: 3-0 Placenta: Intact, Spontaneous Cord: 3 Vessels Estimated Blood Loss: 400 Resuscitation Needed: No : Bulb Syringe, Stimulated, Warmed, Gillespie Used Provider: Jason Lan Score 1 min: 8 Score 5 min: 9 Second Stage Interventions: Reports: Pushing Effectively, Pushing, Pulls Own Legs Back, Pushing, Stirrups/Leg Supports Delivery Comments (Free Text/Narrative):: Stage I: Janet Canela was admitted for active labor and spontaneous rupture of membranes. On admission her cervix was dilated to 4 cm. She was GBS negative. She was given an epidural for anesthesia. She progressed to complete and pushing. Stage II: On 01/29/2020 she had a normal vaginal delivery of a live female infant at 15:57. Apgars of 8 & 9. Weight of 3350 g (7 lbs 6.2 oz). Length of 21 inches. There was a single nuchal cord that was reduced prior to delivery. Infant was delivered in JANEL position. The cord was doubly clamped and cut by myself. was placed on mother's abdomen. Stage III: She had a spontaneous delivery of an intact placenta in Amarilys presentation. Three vessel cord. She was given pitocin and fundal massage. She had a second-degree midline perineal laceration that was repaired with 3-0 Vicryl. Mom and baby were stable to recovery. EBL of 400 mL. 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 SNOMED Code(s): 488421972, 929949641 ICD Code: O99.353 - DISEASES OF THE NERVOUS SYS COMP , THIRD TRIMESTER; G51.0 - HAY'S PALSY Status: Acute Current Visit: Yes (3) Anemia affecting in third trimester SNOMED Code(s): 03076417, 27089412 ICD Code: O99.013 - ANEMIA COMPLICATING , THIRD TRIMESTER Status: Acute Current Visit: Yes (4) Vaginal delivery SNOMED Code(s): 481867157 ICD Code: O80 - ENCOUNTER FOR FULL-TERM UNCOMPLICATED DELIVERY Status: Acute Current Visit: Yes (5) Second degree perineal laceration during delivery SNOMED Code(s): 7892531 ICD Code: O70.1 - SECOND DEGREE PERINEAL LACERATION DURING DELIVERY Status: Acute Current Visit: Yes - Patient Summary/Data Complications: None Consults: None Hospital Course: Janet Canela was admitted for active labor with spontaneous rupture of membranes. On admission her cervix was dilated to 4 cm. She was GBS negative. She was given an epidural for anesthesia. She had spontaneous rupture of membranes with clear fluid on admission. She progressed to complete and began pushing. On 03/30/2019 she had a normal vaginal delivery of a live female infant at 15:57. Apgars of 8 and 9. Weight of 3350 g (7 pounds 6.2 ounces). Her course was uneventful. Her pain was well controlled and she had minimal lochia. She was ambulating, tolerating a regular diet and voiding normally. She was breast-feeding with minimal difficulty. She was afebrile and her hematocrit was 34.9 on PPD #1. She desired to be discharged home on the morning of PPD #2. Her blood type is A+. - Patient Instructions Diet: Regular Diet as Tolerated Activity: Apply Ice, As Tolerated Activity, Other: Nothing in the vagina for 6 weeks Driving: May Drive Today Showering/Bathing: May Shower Notify Provider of: Fever, Increased Pain, Swelling and Redness, Drainage, Nausea and/or Vomiting Other/Special Instructions: Please contact your physician's office if you have heavy vaginal bleeding enough to soak a pad in less than an hour for several hours. You may try to use increased amounts of Colace with taking 100 mg capsules 2-3 times daily. If you have not had a bowel movement in 1 to 2 days I would recommend to use milk of magnesia 1-2 times per day or MiraLAX once each day. Recommend for you to stay very well-hydrated and drink lots of fluids to reduce risks of constipation due to dehydration. Monitor for any signs of an infection in the breasts with severe pain or redness of the breast. - Discharge Plan *PRESCRIPTION DRUG MONITORING PROGRAM REVIEWED*: Not Applicable *COPY OF PRESCRIPTION DRUG MONITORING REPORT IN PATIENT JUDAH: Not Applicable Home Medications: Home Meds Ferrous Sulfate [Iron] 325 mg PO DAILY 01/14/20 [History] Vits #93/Iron Fum/FA [ Formula Tablet] 1 each PO DAILY 01/14/20 [History] Acetaminophen [Tylenol] 650 mg PO Q6H PRN tablet 01/31/20 [Rx] Benzocaine/Menthol [Dermoplast Pain Relief [place]] 1 spray TOP ASDIRECTED PRN canister 01/31/20 [Rx] Docusate Sodium [Colace] 100 mg PO BID PRN cap 01/31/20 [Rx] Hydrocortisone Acetate [Anucort-HC] 25 mg RECTAL BID PRN supp 01/31/20 [Rx] Ibuprofen [Motrin] 600 mg PO Q6H PRN tablet 01/31/20 [Rx] Magnesium Hydroxide [Milk of Magnesia] 30 ml PO BEDTIME PRN cup 01/31/20 [Rx] witkael Dez [Tucks] 1 pad TOP ASDIRECTED PRN pad 01/31/20 [Rx] Patient Handouts: Breast Pumping Tips, and Self-Care, Hemorrhoids, Care of a Perineal Tear, Care After Vaginal Delivery Referrals: Hieu Oreilly MD [Primary Care Provider] - (Follow-up in 2 to 3 weeks for routine visit or earlier as needed.) - Discharge Summary/Plan Comment DC Time >30 min.: No - Patient Data Vitals - Most Recent: Last Vital Signs Temp 36.8 C 01/31/20 03:08 Pulse 74 01/31/20 03:08 Resp 14 01/31/20 03:08 BP 107/62 01/31/20 03:08 Pulse Ox 98 01/31/20 03:08 Weight - Most Recent: 78.517 kg I&O - Last 24 hours: Intake & Output 01/30/20 01/31/20 01/31/20 22:59 06:59 14:59 Intake Total 320 0 Balance 320 0 Lab Results - Last 24 hrs: Laboratory Results - last 24 hr 01/28/20 Range/Units 23:45 RPR Non-reactive (NONREACTIVE) Med Orders - Current: Current Medications Acetaminophen (Tylenol) 650 mg PO Q6H PRN PRN Reason: mild pain or fever Last Admin: 01/30/20 05:19 Dose: 650 mg Documented by: Benzocaine/Menthol (Dermoplast Pain Relief [place]) 0 gm TOP ASDIRECTED PRN PRN Reason: Perineal Comfort Measure Last Admin: 01/29/20 17:31 Dose: 1 can Documented by: Docusate Sodium (Colace) 100 mg PO BID PRN PRN Reason: Constipation Ferrous Sulfate (Ferrous Sulfate) 324 mg PO WITHBREAKFAST [facility] Last Admin: 01/30/20 08:23 Dose: 324 mg Documented by: Hydrocortisone Acetate (Anucort-Hc) 25 mg RECTAL BID PRN PRN Reason: Hemorrhoid pain Last Admin: 01/30/20 18:21 Dose: 25 mg Documented by: Oxytocin/Lactated Ringer's (Pitocin In Lr 10 Units/1,000 Ml) 10 unit in 1,000 mls @ 100 mls/hr IV TITRATE [facility]AI; Protocol Ibuprofen (Motrin) 600 mg PO Q6H PRN PRN Reason: Mild pain or fever Last Admin: 01/30/20 08:24 Dose: 600 mg Documented by: Magnesium Hydroxide (Milk Of Magnesia) 30 ml PO BEDTIME PRN PRN Reason: Constipation Prenat Multivit/Senior Sales Operations Manager/Iron/Folic Ac ( Plus Iron) 1 each PO DAILY [facility]AI Last Admin: 01/30/20 08:57 Dose: Not Given Documented by: Lauri [place]) 1 pad TOP ASDIRECTED PRN PRN Reason: Perineal Comfort Measure Last Admin: 01/29/20 17:32 Dose: 1 tub Documented by: Discontinued Medications Acetaminophen (Tylenol) 650 mg PO Q4H PRN PRN Reason: Pain (Mild 1-3) and fever Calcium Carbonate/Glycine (Tums) 1,000 mg PO Q2H PRN PRN Reason: Indigestion Ephedrine Sulfate (Ephedrine Sulfate) 5 mg IVPUSH ASDIRECTED PRN PRN Reason: Hypotension Fentanyl (Sublimaze) 100 mcg EPIDUR Q3H PRN PRN Reason: Pain Last Admin: 01/29/20 07:08 Dose: 100 mcg Documented by: Fentanyl/Bupivacaine HCl (Fentanyl/Bupivacaine/Ns 2 Mcg-0.125% 100 Ml) 100 ml EPIDUR ASDIRECTED [facility]AI Last Admin: 01/29/20 07:08 Dose: 100 ml Documented by: Lactated Ringer's (Ringers, Lactated) 1,000 mls @ 100 mls/hr IV ASDIRECTED [facility]AI Last Admin: 01/29/20 11:46 Dose: 125 mls/hr Documented by: Oxytocin/Lactated Ringer's (Pitocin In Lr 10 Units/1,000 Ml) 10 unit in 1,000 mls @ 12 mls/hr IV TITRATE WAI; Protocol Oxytocin/Lactated Ringer's (Pitocin In Lr 10 Units/1,000 Ml) 10 unit in 1,000 mls @ 500 mls/hr IV .CONTINUOUS [facility]AI Last Admin: 01/29/20 16:07 Dose: 500 mls/hr Documented by: Lidocaine HCl (Xylocaine 1%) 50 ml INJECT ONETIME ONE Stop: 01/28/20 23:32 Last Admin: 01/31/20 01:04 Dose: Not Given Documented by: Lidocaine HCl (Xylocaine 1%) Confirm Administered Dose 50 ml .ROUTE .STK-MED ONE Stop: 01/29/20 16:14 Last Admin: 01/30/20 05:41 Dose: Not Given Documented by: Miscellaneous Medication (Phenylephrine 1 Mg/10 Ml-Ns) 0 mg IVPUSH ONETIME ONE Stop: 01/29/20 06:55 Last Admin: 01/30/20 10:13 Dose: Not Given Documented by: Nalbuphine HCl (Nubain) 10 mg IVPUSH Q2H PRN PRN Reason: Pain Last Admin: 01/29/20 05:48 Dose: 10 mg Documented by: Ondansetron HCl (Zofran) 4 mg IVPUSH Q4H PRN PRN Reason: Nausea/Vomiting Ondansetron HCl (Zofran) 4 mg IVPUSH ONETIME PRN PRN Reason: Nausea/Vomiting Last Admin: 01/29/20 11:49 Dose: 4 mg Documented by: Sodium Chloride (Saline Flush) 10 ml FLUSH ASDIRECTED PRN PRN Reason: Keep Vein Open
[2020-01-31] MEDS: Ferrous Sulfate 324 MG Tab.EC PO SCH (12:01)
[2020-01-31] MEDS: Prenatal Multivitamin with Calcium/Folic Acid/Iron Tab PO SCH (12:01)
== END 2020-01-31 12:00 | disposition home or self-care (01) | DRG 560 ==
LOC: JD.OBCHECK 23:02 → JD.OB 23:02 → JD.OBCHECK 23:15 → JD.OB 23:17 → OBSVTOIN 01-29 15:57 → JD.OB 01-29 15:58
PROVIDERS: ADMIT Obstetrics & Gynecology; ATTEND Obstetrics & Gynecology
PROC: 10E0XZZ Delivery of Products of Conception, External Approach (ICD-10-PCS; principal; 2020-01-29)
PROC: 0KQM0ZZ Repair Perineum Muscle, Open Approach (ICD-10-PCS; 2020-01-29)
PROC: 4A1HXCZ Monitoring of Products of Conception, Cardiac Rate, External Approach (ICD-10-PCS; 2020-01-29)
PROC: 3E0R3BZ Introduction of Anesthetic Agent into Spinal Canal, Percutaneous Approach (ICD-10-PCS; 2020-01-29)
PROC: 00HU33Z Insertion of Infusion Device into Spinal Canal, Percutaneous Approach (ICD-10-PCS; 2020-01-29)
DX: O48.0 Post-term pregnancy (principal); O99.013 Anemia complicating pregnancy, third trimester; O70.1 Second degree perineal laceration during delivery; O99.353 Diseases of the nervous system complicating pregnancy, third trimester; Z79.899 Other long term (current) drug therapy; Z3A.40 40 weeks gestation of pregnancy; Z37.0 Single live birth; O69.81X0 Labor and delivery complicated by cord around neck, without compression, not applicable or unspecified; O99.611 Diseases of the digestive system complicating pregnancy, first trimester; K59.00 Constipation, unspecified; G51.0 Bell's palsy; Z79.1 Long term (current) use of non-steroidal anti-inflammatories (NSAID); Z87.440 Personal history of urinary (tract) infections
CPT/HCPCS: 01967; 36415; 51702; 59025; 59409; 85025; 86592; 86850; 86900; 86901; A9270-GY; J2300; J2405; J2590; J3010; J3490; J7120; U0002

== ENCOUNTER 2021-12-05 16:23 | Inpatient (IN) | payer BC ==
[~2021-12-05 16:23] MED LIST: Bupivacaine 0.25% 10 ML SDV ONE
[2021-12-05] MEDS ORDERED: Calcium Carbonate 500 MG Tab.Chew PO PRN (16:33)
[2021-12-05] MEDS ORDERED: Nalbuphine HCl 10 MG/ 1ML Amp IVPUSH PRN (16:33)
[2021-12-05] MEDS ORDERED: Ondansetron 4 MG/2 ML SDV IVPUSH PRN (16:33)
[2021-12-05] MEDS ORDERED: Sodium Chloride 0.9% 10 ML Syringe FLUSH PRN (16:33)
[2021-12-05] MEDS ORDERED: Oxytocin/Lactated Ringers 10 UNIT/1,000 ML BAG IV SCH ×2 (16:45)
[2021-12-05] MEDS ORDERED: fentaNYL 100 MCG/2 ML SDV EPIDUR PRN (17:06)
[2021-12-05] MEDS ORDERED: Bupivacaine/fentaNYL/NS 100 ML Bag EPIDUR PRN (17:06)
[2021-12-05] MEDS ORDERED: diphenhydrAMINE 50 MG/ML SDV IVPUSH PRN (17:06)
[2021-12-05] MEDS ORDERED: ePHEDrine 50 MG/ML SDV IVPUSH PRN (17:06)
[2021-12-05] MEDS: Lactated Ringers 1,000 ML IV SCH ×3 (17:56→21:10)
[2021-12-05] MEDS ORDERED: Sodium Chloride 0.9% 10 ML Syringe FLUSH SCH (21:00)
[2021-12-05] MEDS ORDERED: Acetaminophen 325 MG Tab PO PRN (23:52)
[2021-12-05] MEDS ORDERED: Witch Hazel Medicated Pads 40/Jar TOP PRN (23:52)
[2021-12-05] MEDS ORDERED: Ibuprofen 600 MG Tab PO PRN (23:52)
[2021-12-05] MEDS ORDERED: Docusate Sodium 100 MG Cap PO PRN (23:52)
[2021-12-05] MEDS ORDERED: Benzocaine/Menthol 20%-0.5% Spray 78 GM Cannister TOP PRN (23:52)
[2021-12-06] MEDS ORDERED: Ferrous Sulfate 324 MG Tab.EC PO SCH (07:00)
[2021-12-06] MEDS: Prenatal Multivitamin with Calcium/Folic Acid/Iron Tab PO SCH ×2 (07:21→08:45)
== END 2021-12-07 11:30 | disposition home or self-care (01) | DRG 560 ==
LOC: JD.OBCHECK 16:23 → JD.OB 16:28 → JD.OBCHECK 16:30 → JD.OB 16:33 → UNDOADMOB 16:33 → JD.OB 22:24 → OBSVTOIN 22:24 → JD.OB 12-06 09:29
PROVIDERS: ADMIT Obstetrics & Gynecology; ATTEND Obstetrics & Gynecology
PROC: 10E0XZZ Delivery of Products of Conception, External Approach (ICD-10-PCS; principal; 2021-12-05)
PROC: 10907ZC Drainage of Amniotic Fluid, Therapeutic from Products of Conception, Via Natural or Artificial Opening (ICD-10-PCS; 2021-12-05)
PROC: 3E0R3BZ Introduction of Anesthetic Agent into Spinal Canal, Percutaneous Approach (ICD-10-PCS; 2021-12-05)
PROC: 00HU33Z Insertion of Infusion Device into Spinal Canal, Percutaneous Approach (ICD-10-PCS; 2021-12-05)
DX: O48.0 Post-term pregnancy (principal); Z3A.40 40 weeks gestation of pregnancy; Z37.0 Single live birth; O99.214 Obesity complicating childbirth; E66.9 Obesity, unspecified; O99.344 Other mental disorders complicating childbirth; F41.9 Anxiety disorder, unspecified; O99.02 Anemia complicating childbirth; D64.9 Anemia, unspecified; O69.81X0 Labor and delivery complicated by cord around neck, without compression, not applicable or unspecified
CPT/HCPCS: 01967; 36415; 51702; 59025; 59409; 85025; 86592; 86850; 86900; 86901; A9270-GY; J2590; J3010; J3490; J7120